=== PATIENT | male | born 1980 | race American Indian/Alaskan Native ===

== ENCOUNTER 2021-06-14 15:13 | Emergency (ER) | payer SELFPAY ==
[2021-06-14] MEDS ORDERED: ONDANSETRON 4 MG/2 ML INJ IV ONE (16:38)
--- NOTE | 2021-06-14 16:41 | Emergency Department Report ---
ED Abdominal Pain HPI - General Stated Complaint: VOMITING Time Seen by Provider: 06/14/21 16:27 - History of Present Illness Initial Comments: Patient presents with nausea and vomiting. He was diagnosed with Covid recently. He states that he still cannot keep anything down. He came in because of this. He has had decreased urinary output. His urine is very dark and yellow. He has no abdominal pain associate with this. He states that he just has nausea and vomiting. He did not have medicine to try to control this at home. He has had no diarrhea. There has been no hematemesis or carcinogenesis. There is no melenic stool. He has had ongoing body aches and malaise related to his recent diagnosis of COVID-19. - Related Data Previous Rx's Medication Instructions Recorded Last Taken Type Ondansetron [Zofran Odt] 4 mg PO Q8HR PRN #20 tab.rapdis 06/14/21 Unknown Rx Allergies Allergy/AdvReac Type Severity Reaction Status Date / Time Penicillins Allergy Hives Verified 06/14/21 16:56 ED Review of Systems ROS: Stated complaint: VOMITING Other details as noted in HPI Comment: All other systems reviewed and negative Constitutional: see HPI, malaise Eyes: denies: eye pain ENT: denies: throat pain Respiratory: denies: cough Cardiovascular: denies: chest pain Endocrine: denies: unexplained weight loss Gastrointestinal: denies: abdominal pain Genitourinary: denies: dysuria Musculoskeletal: denies: back pain Skin: denies: rash Neurological: denies: headache Hematological/Lymphatic: denies: easy bruising ED Past Medical Hx - Past Medical History Previous Medical History?: Yes Additional medical history: COVID-19 - Family History Family history: no significant - Medications Home Medications: Home Medications Medication Instructions Recorded Confirmed Last Taken Type Ondansetron [Zofran Odt] 4 mg PO Q8HR PRN #20 tab.rapdis 06/14/21 Unknown Rx ED Physical Exam - General Limitations: Other (Pulse ox was noted. Patient is not hypoxic.) General appearance: alert, in no apparent distress, obese - Head Head exam: Present: atraumatic, normocephalic - Eye Eye exam: Present: normal appearance, EOMI. Absent: scleral icterus - ENT ENT exam: Present: normal exam, mucous membranes dry, normal external ear exam - Neck Neck exam: Present: normal inspection. Absent: meningismus - Respiratory Respiratory exam: Present: normal lung sounds bilaterally. Absent: respiratory distress - Cardiovascular Cardiovascular Exam: Present: regular rate, normal rhythm - GI/Abdominal GI/Abdominal exam: Present: soft. Absent: distended, tenderness - Extremities Exam Extremities exam: Present: normal capillary refill. Absent: pedal edema - Back Exam Back exam: Absent: CVA tenderness (R), CVA tenderness (L) - Neurological Exam Neurological exam: Present: alert, oriented X3, normal gait. Absent: motor sensory deficit - Psychiatric Psychiatric exam: Present: normal affect, normal mood - Skin Skin exam: Present: warm, dry ED Course Vital Signs 06/14/21 16:53 Temperature 100.5 F H Pulse Rate 109 H Respiratory 18 Rate Blood Pressure 120/79 [Right] O2 Sat by Pulse 91 Oximetry - Reevaluation(s) Reevaluation #1: 06/14/21 16:40 IV and Zofran ordered. Reevaluation #2: 06/14/21 19:09 IV fluids are still pending. Reevaluation #3: 06/14/21 20:46 Patient was discharged after IV fluids. ED Medical Decision Making - Medical Decision Making Patient presents with nausea and vomiting related to a recent coronavirus infection. He does not appear to be jaundiced. He does not have abdominal pain. There is no evidence or symptoms suggestive of hepatitis or pancreatitis. He certainly has no distention or tympany to suggest bowel obstruction per there is no peritoneal finding. Patient does not have intractable vomiting here. He does not appear to be toxic. He is not diabetic. He was treated symptomatically and referred for outpatient evaluation and follow-up. Critical Care Time: No Critical care attestation.: If time is entered above; I have spent that time in minutes in the direct care of this critically ill patient, excluding procedure time. ED Disposition Clinical Impression: Nausea & vomiting, Dehydration, Acute febrile illness Disposition: 01 HOME / SELF CARE / HOMELESS Is pt being admited?: No Does the pt Need Aspirin: No Condition: Stable Instructions: Nausea and Vomiting, Adult, [id number], Dehydration, Adult, [id number] Additional Instructions: Have a bland diet. Drink plenty water. Return for problems. Follow-up with your regular doctor for recheck and further management. Isolated home. Prescriptions: Ondansetron [Zofran Odt] 4 mg PO Q8HR PRN #20 tab.rapdis PRN Reason: Nausea Referrals: PRIMARY CARE, [Primary Care Provider] - 3-5 Days
[2021-06-14 16:54] VITALS: BP 120/79
[2021-06-14] MEDS ORDERED: ONDANSETRON 4 MG/2 ML INJ ONE (16:57)
[2021-06-14] MEDS ORDERED: ACETAMINOPHEN 500 MG TAB PO ONE ×2 (19:09→21:28)
[2021-06-14] MEDS: SODIUM CHLORIDE 0.9% 1000 ML 1,000 ML IV ONE ×2 (21:27→22:33)
[2021-06-14] MEDS ORDERED: ONDANSETRON 4 MG ODT TAB PO ONE (22:30)
== END 2021-06-14 23:00 | disposition home or self-care (01) ==
LOC: ED 15:13
DX: E86.0 Dehydration (principal); R11.2 Nausea with vomiting, unspecified; R50.9 Fever, unspecified; Z98.890 Other specified postprocedural states; Z88.0 Allergy status to penicillin; Z79.899 Other long term (current) drug therapy
CPT/HCPCS: 96374; 99282; J2405; J7030; Q0162